=== PATIENT | male | born 2000 | race Caucasian/White ===

== ENCOUNTER 2022-08-13 02:28 | Outpatient (CLI) | payer BC, SELFPAY ==
--- NOTE | 2022-08-13 09:02 | DI.RAD_ITS ---
Exam(s) RF BARIUM SWALLOW EXAM: RF BARIUM SWALLOW CLINICAL HISTORY: feeling of food becoming stuck at CP,dysphagia,r13.14 TECHNIQUE: 2D and realtime digital imaging was performed. CONTRAST MATERIAL: Oral barium Oral water soluble contrast was administered. COMPARISON: No exams were available for comparison FINDINGS: ESOPHAGRAM: Performed both standing and DAY recumbent. The swallowing mechanism is intact with no evidence of aspiration. There is no hypertense upper esop hageal sphincter demonstrated. No evidence of Zenker's diverticulum. No fixed lesions nor diverticu li seen in the esophagus. No posterior indentation which would suggest the presence of an aberrant r ight subclavian artery impressing upon the posterior wall of the esophagus. GE junction appears unremarkable. No Schatzki ring nor hiatal hernia evident. No stricture at this level nor delayed passage. No tertiary waves demonstrated in the esophagus and no obvious reflux demonstrated. IMPRESSION: No significant findings on this esophagram. This patient informs me that is main difficulties is with swallowing. Therefore, if clinically indic ated, further study with modified barium swallow can be performed in our department in conjunction wi the speech therapist. RADIATION DOSE DELIVERED: ten Herron=31.3 mGy
[2022-08-13] MEDS: Barium Sulfate 60% W/V 355 ML BTL PO (09:55)
[2022-08-13] MEDS: Barium Sulfate 98% W/W 140 ML BTL PO (09:55)
[2022-08-13] MEDS: Simethicone/Sod Bicarb/Cit Ac, 4 gram PACKET 1 PACKET PO (09:57)
== END 2022-08-13 02:48 ==
LOC: DI 02:29
PROVIDERS: PCP Pediatrics; Visit Provider Otolaryngology
DX: R13.14 Dysphagia, pharyngoesophageal phase (principal)
CPT/HCPCS: 74221; J3490